=== PATIENT | male | born 1960 | race Caucasian/White ===

== ENCOUNTER → 2019-12-09 15:09 | Outpatient (CLI) | payer OTHER, SELFPAY ==
--- NOTE | ~2019-12-09 | CT_ITS ---
EXAMINATION: CT abdomen pelvis wo con DATE: 12/09/2019 15:33 INDICATION: Umbilical hernia TECHNIQUE: Computed tomography (CT) of the abdomen and pelvis was performed without intravenous contr ast. The dose-length product was 1083.29 mGy-cm. Automated exposure control and iterative reconstruct ion technique were employed. COMPARISON: None. FINDINGS: Lung bases are unremarkable. Heart size normal. No significant pleural or pericardial effus ion. The liver, spleen, pancreas, adrenal glands and kidneys are unremarkable. Gallbladder is present . Colonic diverticulosis without diverticulitis. Normal appendix. Small fat-containing umbilical edison ia. No abnormal pelvic masses or fluid collections. Only enlarged prostate gland. Moderate lumbar spo ndylosis. No acute osseous abnormality. IMPRESSION: 1. No acute abdominal abnormality. 2: Small fat-containing umbilical hernia. Reviewed, dictated and finalized at location A. [employer]
== END ==
PROVIDERS: PCP Family Medicine; Visit Provider Family Medicine
DX: K42.9 Umbilical hernia without obstruction or gangrene (principal)
CPT/HCPCS: 74176

== ENCOUNTER 2020-10-09 08:29 | Outpatient (NON) | payer OTHER, SELFPAY ==
[2020-10-09 23:36] LABS: SARS-CoV-2 RNA PCR Negative
== END 2020-10-09 08:30 ==
PROVIDERS: PCP Family Medicine; Visit Provider Family Medicine
DX: Z20.828 Contact with and (suspected) exposure to other viral communicable diseases (principal); R50.9 Fever, unspecified; R52 Pain, unspecified
CPT/HCPCS: 87635; C9803; U0003